=== PATIENT | male | born 1970 | race Caucasian/White ===

== ENCOUNTER 2019-02-18 11:27 | Emergency (ER) | payer SELFPAY ==
[2019-02-18 11:27] VITALS: BP 129/92; BP 138/92; PULSE 68; PULSE 78; RESP 12; RESP 20; TEMP 36.6; O2SAT 98; O2SAT 99; BMI 28.0
--- NOTE | 2019-02-18 11:33 | RAD_ITS ---
STUDY: X-RAY CHEST REASON FOR EXAM: Male, 48 years old. Left-sided chest pain with near syncope while driving TECHNIQUE: AP COMPARISON: None. FINDINGS: EKG leads project over the chest. The lungs are clear and expanded. There is no demonstrated pleural abnormality. Normal size heart. Normal mediastinum and anne marie. Normal visualized pulmonary arteries. Normal visualized aortic arch and descending thoracic aorta. Normal visualized thoracic spine. Normal visualized ribs, clavicles, and shoulders. There is no demonstrated abnormality of the visualized soft tissue structures of the upper abdomen. RAD/Chest 1 View (Portable) IMPRESSION: Nonacute portable x-ray examination of the chest. Electronically Signed: Hernán Miguel MD at 11:55 EDT , Service support ,
--- NOTE | 2019-02-18 11:33 | EKG12_ITS ---
Test Reason : CP Blood Pressure : / mmHG Vent. Rate : 069 BPM Atrial Rate : 069 BPM P-R Int : 132 ms QRS Dur : 080 ms QT Int : 356 ms P-R-T Axes : 038 022 019 degrees QTc Int : 381 ms Normal sinus rhythm Normal ECG Confirmed by SOLANGE SILVESTRE, DELPHINE ([id number]), assistant film editor [employer] ([id number]) on 02/20/2019 7:59:54 AM Referred By: ENRIQUETA Confirmed By:DELPHINE NARVAEZ MD
[2019-02-18 11:34] VITALS: O2SAT 99
[2019-02-18 11:41] LABS: Absolute Lymphocyte Count 2.86 X10^3/ul (0.83-4.51); Absolute Neutrophil Count 2.7 X10^3/uL (2.0-7.7); Basophil# 0.02 X10^3/uL; Basophil% 0.3 % (0-1); Eosinophil# 0.18 X10^3/uL; Eosinophils% 2.8 % (0-5); Hematocrit 46.8 % (40-54); Hemoglobin 15.6 g/dl (13.0-16.5); Lymphocyte # 2.86 X10^3/ul (4.0); Lymphocyte % 44.3 % (19-41); Mean Corp Hgb Conc 33.3 g/gl (32-36); Mean Corpuscular Hgb 29.3 pg (27.0-32.0); Mean Corpuscular Volume 87.8 fL (80-94); Mean Platelet Vol. 10.3 fl (6.2-12.0); Monocyte# 0.72 X10^3/uL; Monocyte% 11.2 % (0-10); Neutrophil # 2.66 X10^3/uL (2.7-7.7); Neutrophil % 41.2 % (47-70); Platelet Count 233 K/mm3 (150-450); RBC Distribution Width SD 41.7 fl (35.1-43.9); Red Blood Count 5.33 M/mm3 (4.6-6.2); White Blood Count 6.5 K/mm3 (4.4-11.0)
[2019-02-18 11:42] LABS: POSITIVE COUNT NO; POSITIVE DIFFERENTIAL NO; POSITIVE MORPHOLOGY NO
[2019-02-18 11:58] LABS: Anion Gap 3 (5-15); BUN 15 mg/dL (7-18); BUN/Creat Ratio 13.5 RATIO (10-20); Calcium,Total 8.7 mg/dL (8.5-10.1); Chloride 107 mmol/L (98-107); Creatinine, Serum 1.11 mg/dL (0.70-1.30); EST Glomerular Filtration Rate 76 mL/min (>60); Est Glom Filt Rate - Afr Amer 92 mL/min (>60); Estimated Creatinine Clearance 83.16 ml/min; Glucose 95 mg/dL (74-106); Potassium 4.1 mmol/L (3.5-5.1); Sodium Level 139 mmol/L (136-145)
[2019-02-18 12:41] VITALS: BP 133/87; PULSE 62; RESP 16; O2SAT 98
--- NOTE | 2019-02-18 12:48 | ED.VISSUMM ---
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 Time intensified to the point where he was concerned he would pass out but he did not actually have any syncope. Was brought to the hospital. He has had these types of problems for a number of years possibly dating back to 2 to 4 years, the symptoms intensified over the last year and he was admitted to the [facility] had a work-up including a stress test and other tests by his manual machinist Dr. Serrano that were negative, 2 weeks ago while at work apparently had elevation of his blood pressure, he was seen at [facility] had evaluation there that was all negative he was started on antihypertensives and told to follow-up No known history of cardiovascular disease or disorder no history of [place] PE or DVT he is very active and healthy no history of GI elements, he is having normal bowel bladder habits his review of systems are negative, he is resting in the bed at this time with no complaints or symptoms. He has had intermittent chest discomfort since the negative work-up by his manual machinist but discussions with the and the patient it is not clear that his physicians actually know he is having persistent symptoms intermittently Nothing triggers the symptoms,, he woke up feeling fine today and currently he is back to baseline with no complaints Physical Examination: [] 130/80 General, no distress resting comfortably HEENT is generally unremarkable The neck is supple no adenopathy Cardiovascular, regular rate and rhythm Lungs, clear bilateral Abdomen, soft nontender Extremities, no clubbing cyanosis or edema Neurologic, awake alert answering questions appropriately moving all 4 extremities Test Results: [] Emergency Department Course and Treatment: [] EKG shows a sinus rhythm nothing acute all the screening labs are generally unremarkable as is radiology read of the chest x-ray please see all those reports I had a long conversation the patient and his we discussed inpatient versus outpatient management as a differential was rather extensive he understood my concern about the possibility of a cardiovascular condition that could be life-threatening contributing to his symptoms and the need for further management, however he did not wish to be admitted he preferred outpatient management with his manual machinist and other outpatient providers, the was in the room and he made this decision and just wanted me to make clear to the patient that he needs to follow-up and not ignore his symptoms as he is in the past and I did so, in addition he assures me he feels fine right now I did page Dr. Serrano his manual machinist at [facility] to make them aware of the above, Dr. Serrano has yet to call back when and if he does I will discuss the above with him but in either case the patient wants to go home he will see Dr. Serrano tomorrow calling for an appointment and he will return for change in symptoms Please note we had no call back from Dr. Serrano or their on-call Treatment Plan: [] Disposition: [] Home stable patient declined admission Impression: [] Intermittent chest pain etiology unclear This note was generated with [employer] dictation software. It may contain incorrect words, spelling, and punctuation that were not noted in review of the chart prior to signing ED Disposition - Plan for ED Patient: Disposition: Home or Assisted Living Instructions: ED Chest Pain Atypical Unkn Cause Referrals: [facility] Doctor,Out of [Primary Care Provider] - Additional Instructions: Please follow-up with your manual machinist tomorrow, return for any new or change symptoms
--- NOTE | 2019-02-18 12:53 | ED.DCSUM_ITS ---
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 Time intensified to the point where he was concerned he would pass out but he did not actually have any syncope. Was brought to the hospital. He has had these types of problems for a number of years possibly dating back to 2 to 4 years, the symptoms intensified over the last year and he was admitted to the [facility] had a work-up including a stress test and other tests by his staff development nurse Dr. Serrano that were negative, 2 weeks ago while at work apparently had elevation of his blood pressure, he was seen at [facility] had evaluation there that was all negative he was started on antihypertensives and told to follow-up No known history of cardiovascular disease or disorder no history of [place] PE or DVT he is very active and healthy no history of GI elements, he is having normal bowel bladder habits his review of systems are negative, he is resting in the bed at this time with no complaints or symptoms. He has had intermittent chest discomfort since the negative work-up by his staff development nurse but discussions with the and the patient it is not clear that his physicians actually know he is having persistent symptoms intermittently Nothing triggers the symptoms,, he woke up feeling fine today and currently he is back to baseline with no complaints Physical Examination: [] 130/80 General, no distress resting comfortably HEENT is generally unremarkable The neck is supple no adenopathy Cardiovascular, regular rate and rhythm Lungs, clear bilateral Abdomen, soft nontender Extremities, no clubbing cyanosis or edema Neurologic, awake alert answering questions appropriately moving all 4 extremities Test Results: [] Emergency Department Course and Treatment: [] EKG shows a sinus rhythm nothing acute all the screening labs are generally unremarkable as is radiology read of the chest x-ray please see all those reports I had a long conversation the patient and his we discussed inpatient versus outpatient management as a differential was rather extensive he understood my concern about the possibility of a cardiovascular condition that could be life- threatening contributing to his symptoms and the need for further management, however he did not wish to be admitted he preferred outpatient management with his staff development nurse and other outpatient providers, the was in the room and he made this decision and just wanted me to make clear to the patient that he needs to follow-up and not ignore his symptoms as he is in the past and I did so, in addition he assures me he feels fine right now I did page Dr. Serrano his staff development nurse at [facility] to make them aware of the above, Dr. Serrano has yet to call back when and if he does I will discuss the above with him but in either case the patient wants to go home he will see Dr. Serrano tomorrow calling for an appointment and he will return for change in symptoms Please note we had no call back from Dr. Serrano or their on-call Treatment Plan: [] Disposition: [] Home stable patient declined admission Impression: [] Intermittent chest pain etiology unclear This note was generated with [employer] dictation software. It may contain incorrect words, spelling, and punctuation that were not noted in review of the chart prior to signing ED Disposition - Plan for ED Patient: Disposition: Home or Assisted Living Instructions: ED Chest Pain Atypical Unkn Cause Referrals: [facility] Doctor,Out of [Primary Care Provider] - Additional Instructions: Please follow-up with your staff development nurse tomorrow, return for any new or change symptoms
--- NOTE | 2019-02-18 12:53 | ED.DEP ---
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
[2019-02-18 13:01] VITALS: BP 140/90; PULSE 62; RESP 16; O2SAT 99
== END 2019-02-18 13:42 | disposition home or self-care (01) ==
LOC: ED 13:34
PROVIDERS: Emergency Provider Emergency Medicine
DX: R07.89 Other chest pain (principal); I10 Essential (primary) hypertension
CPT/HCPCS: 71045; 80048; 84484; 85025; 93005; 99284